=== PATIENT | male | born 1955 | race African-American/Black ===

== ENCOUNTER 2017-06-13 19:24 | Emergency (ER) | payer MEDICARE ==
--- NOTE | ~2017-06-13 | CT2 ---
[facility] RADIOLOGY TEXT RESULTS PATIENT: NATALEE ORTIZ LOCATION: [facility] : 53 UNIT #: [id number] AGE: [address]: Raymundo Whittington MD SEX: M ORDER DR: [id number] [facility] [address] [place], [place] [address] [id number] E MR#: [id number] Acc #: [id number] NAME: NATALEE ORTIZ. : 1955 SEX: M STUDY DATE/TIME: 06/13/2017 21:38 UNIT: [facility] ROOM: STUDY DESCRIPTION: CT Abd and Pelv W Cont Attending Physician: Bruce Whittington M.D. Ordering Physician: Ed Mariano Campos M.D. Primary Care Physician: No Primary Care Physician MEDICAL IMAGING REPORT This report is preliminary unless electronic signature is present EXAM CT abdomen and pelvis with contrast 06/13/1817 HISTORY 61-year-old male in the ED complaining of abdomen pain, constipation and black stools. Symptoms for the last [address] examination of the abdomen and pelvis with oral and IV contrast. This CT exam was performed with one or more of the following radiation dose reduction techniques: automatic control, adjustment of mA and/or kV according to patient size, and iterative reconstruction. FINDINGS ABDOMEN FINDINGS: Mild diffuse hepatic steatosis. Liver, pancreas and spleen are otherwise normal in appearance. Both kidneys are negative with no evidence of urinary obstruction. Contracted gallbladder. No bile duct dilatation. Mild descending and sigmoid colonic diverticulosis. Small bowel and colon are otherwise normal in caliber and appearance. The appendix is normal. Normal-caliber abdominal aorta. PELVIS FINDINGS: As on the previous study of 06/08/2016, the prostate appears mildly enlarged, and there is mild soft tissue stranding within pelvic fat surrounding the prostate. This may be inflammatory, but followup laboratory testing including PSA is recommended. The urinary bladder is empty. The rectum is negative. No adenopathy or other mass within the abdomen or pelvis. Advanced degenerative disc disease at L5-S1 with L5 spondylolysis and grade 1 to 2 anterolisthesis, unchanged. [facility] of [facility] RADIOLOGY TEXT RESULTS PATIENT: NATALEE ORTIZ [id number] 53 UNIT #: [id number] AGE: [address]: Raymundo Whittington MD SEX: M ORDER DR: IMPRESSION 1. No acute abnormality within the abdomen or pelvis. 2. Mild colonic diverticulosis. Normal appendix. 3. Mild diffuse hepatic steatosis. 4. The prostate appears mildly enlarged, and there is mild soft tissue stranding in the adjacent pelvic fat. Similar findings were described on the previous study of 06/08/2016. Correlate for clinical or laboratory evidence of prostatitis. Nondistended urinary bladder. 5. Advanced degenerative disc disease at L5-S1 with L5 spondylolysis and grade 1 to 2 anterolisthesis. Dictated by... Milton Camacho M.D. THIS IS AN ELECTRONICALLY VERIFIED REPORT Milton Camacho M.D. at 06/14/2017 4:55 PM KAYDEN/kanika TD: 06/14/2017 02:05 JOB #: [id number] MEDICAL IMAGING REPORT Page 1 of 1 COPY
[~2017-06-13 19:24] MED LIST: ACETAMINOPHEN PO; ACIPHEX20 MG PO; ALTOPREV20 MG PO; ASPIRIN81 M2 PO; ASPIRIN81 MG PO; ATARAX PO; AZITHROMYCIN250 MG PO; BENZONATATE PO; COLACE PO; COREG3.125 M1 PO; FLEXERIL10 M1 PO; LASIX20 MG PO; LEVAQUIN750 M1 PO; LORTAB 5/500 TA1 TA1 PO; MEDROL DOSEPAK4 MG PO; METFORMIN HCL500 M1 PO; METOPROLOL SUCC25 MG PO; METOPROLOL TART25 MG PO; MIRALAX17 GM PO; MOTRIN400 M1 PO; NAPROSYN500 MG PO; NITROGLYGERIN0.4 MG SL; PRINIVIL5 MG PO; VICODIN ES 7.51 EAC1 PO; ZESTRIL5 MG PO; ZOCOR20 MG PO
[2017-06-13 20:13] LABS: BASOPHIL# 0.1 X10e3 (0-0.3); EOSINOPHIL# 0.1 X10e3 (0-0.7); EOSINOPHIL% 2.3 % (0.0-7.0); HEMATOCRIT 39.7 % (38.0-50.0); HEMOGLOBIN 12.5 gm/dL (13.0-16.0); LYMPHOCYTE# 2.5 X10e3 (1.0-3.5); LYMPHOCYTE% 43.6 % (17.0-45.0); MEAN CELL VOLUME 81.2 FL (83-96); MEAN CORPUSCULAR HEMOGLOBIN 25.5 PG (28-34); MEAN CORPUSCULAR HGB CONC 31.4 g/dL (30-36); MEAN PLATELET VOLUME 8.8 FL (6.5-11.5); MONOCYTE# 0.4 X10e3 (0-1.0); MONOCYTE% 7.4 % (3.0-12.0); NEUTROPHIL# 2.6 X10e3 (1.5-7.1); NEUTROPHIL% 45.7 % (40-75); PLATELET COUNT 227 X10e3 (140-420); RED BLOOD COUNT 4.88 X10e (3.90-5.60); RED CELL DISTRIBUTION WIDTH 18.5 % (11.0-15.5); WHITE BLOOD COUNT 5.7 X10e3 (4.0-10.5)
[2017-06-13 20:18] LABS: DIFF IND NO
[2017-06-13 20:42] LABS: ALBUMIN SERUM 4.3 g/dL (3.5-5.0); ALKALINE PHOSPHATASE 50 U/L (32-92); ALT (SGPT) 21 U/L (10-40); AMYLASE 63 U/L (0-46); AST (SGOT) 25 U/L (10-42); BILIRUBIN, DIRECT <0.1 mg/dL (0.0-0.2); BILIRUBIN,INDIRECT 0.4 mg/dL (0.0-0.9); BILIRUBIN,TOTAL 0.5 mg/dL (0.2-2.0); BLOOD UREA NITROGEN 14 mg/dL (9-23); CALCIUM SERUM 8.9 mg/dL (8.4-10.2); CARBON DIOXIDE 25 mmol/L (22-31); CHLORIDE 108 mmol/L (100-111); CREATININE SERUM 1.4 mg/dL (0.6-1.4); GLUCOSE FASTING 128 mg/dL (70-110); LIPASE 107 U/L (22-51); PROTEIN TOTAL SERUM 7.4 g/dL (6.0-8.3); SODIUM 139 mmol/L (135-145)
[2017-06-13 20:53] LABS: URINE SOURCE CLEAN CATCH
[2017-06-13 20:57] LABS: URINE APPEARANCE CLEAR; URINE BILIRUBIN NEG (NEG); URINE BLOOD NEG (NEG); URINE COLOR YELLOW; URINE GLUCOSE NEG (NEG); URINE KETONE NEG (NEG); URINE LEUKOCYTE ESTERASE NEG (NEG); URINE NITRATE NEG (NEG); URINE PROTEIN TRACE (NEG); URINE SPECIFIC GRAVITY 1.021 (1.003-1.035)
[2017-06-13 20:59] LABS: CULTURE INDICATED? NO
== END 2017-06-13 22:30 | disposition home or self-care (01) ==
LOC: CED 19:24
PROVIDERS: Emergency Medicine
DX: R10.84 Generalized abdominal pain (principal); E11.9 Type 2 diabetes mellitus without complications; Z79.4 Long term (current) use of insulin; I10 Essential (primary) hypertension; E78.5 Hyperlipidemia, unspecified
CPT/HCPCS: 36415; 74177; 80048; 80076; 81003; 82150; 83690; 85025; 99284; Q9967